=== PATIENT | female | born 1990 | race Hispanic/Latino ===

== ENCOUNTER 2016-06-01 23:31 | Emergency (ER) | payer OTHER ==
[~2016-06-01] VITALS: Ht 167.6 cm; Wt 82.1 kg
[~2016-06-01 23:31] MED LIST: ACYCLOVIR400 MG PO; AMOXICILLIN500 MG PO; ANAPROX DS550 M1 PO; BACTRIM,SEPT1 TABLET PO; CLONAZEPAM0.5 MG PO; ERYTHROMYCIN O3.5 GM BOTH EYES; EXCEDRIN MIGRA1 EAC1; KLONOPIN0.5 M1 PO; KLONOPIN1 MG PO; MOTRIN800 MG PO; Motrin PO; NOHOMEMEDS; NORCO 5/3251 TABLET PO; PAROXETINE HCL20 MG PO; PAXIL40 MG PO; REGLAN10 MG PO; Tylenol Extra Streng PO; Tylenol Regular Stre PO; ULTRAM50 MG PO; ZOFRAN ODT4 MG PO; ZOFRAN4 MG PO; ZOLPIDEM TARTRAT5 MG PO
[2016-06-02 00:22] LABS: ADD MIUA? NO; BILIRUBIN NEGATIVE; BLOOD NEGATIVE; COLOR STRAW ((YELLOW)); GLUCOSE (STRIP) NEGATIVE; KETONES NEGATIVE; LEUKOCYTES NEGATIVE; NITRITE NEGATIVE; PROTEIN (STRIP) NEGATIVE; SPECIFIC GRAVITY 1.004 (1.000-1.030); UCUL ADDED? NO; UROBILINOGEN 0.2 MG/DL (0.2-1.0)
[2016-06-02 00:23] LABS: HEMATOCRIT 40.1 % (36.0-46.0); MCH 31.4 PG (29.0-34.0); MCHC 34.2 G/DL (30.0-36.0); MCV 91.8 FL (83-99); PLATELET COUNT 285 K/uL (156-360); RBC DIS.WIDTH-CV 12.4 % (11.8-14.6); RBC DIS.WIDTH-SD 40.6 % (39-53); RED BLOOD COUNT 4.37 M/uL (3.80-5.20); WHITE BLOOD COUNT 7.8 K/uL (4.1-10.2)
[2016-06-02 00:29] LABS: AMPHETAMINE NEGATIVE (500 ng/mL); BARBITURATES NEGATIVE (200 ng/mL); BENZODIAZEPINES NEGATIVE (150 ng/mL); COCAINE NEGATIVE (150 ng/mL); INTERNAL CONTROLS VALID? YES; METHADONE NEGATIVE (200 ng/mL); METHAMPHETAMINE NEGATIVE (500 ng/mL); OPIATES (MORPHINE) NEGATIVE (100 ng/mL); OXYCODONE NEGATIVE (100 ng/mL); PHENCYCLIDINE NEGATIVE (25 ng/mL); PROPOXYPHENE NEGATIVE (300 ng/mL); THC CANNABINOIDS NEGATIVE (50 ng/mL); TRICYCLIC ANTIDEPRESSANTS NEGATIVE (300 ng/mL)
[2016-06-02 00:38] LABS: CHLORIDE 111 mEq/L (99-109); POTASSIUM 3.5 mEq/L (3.7-5.4); SODIUM 144 mEq/L (136-147)
[2016-06-02 00:40] LABS: GLUCOSE 98 mg/dL (70-99)
[2016-06-02 00:42] LABS: ANION GAP 11 MEQ/L (2-14)
[2016-06-02 00:43] LABS: SERUM ETHYL ALCOHOL 256 mg/dL
[2016-06-02 00:44] LABS: GFR ESTIMATE (CALCULATED) > 59 mL/min/
[2016-06-02 00:45] LABS: UREA NITROGEN (BUN) 10 mg/dL (9-23)
[2016-06-02 00:54] LABS: QUANTITATIVE HCG < 4.0 MIU/ML
[2016-06-02 08:37] VITALS: BP 111/56
== END 2016-06-02 09:20 | disposition home or self-care (01) ==
LOC: EME → EDBD 23:31 → EME 23:31
PROVIDERS: Emergency Medicine
DX: F32.9 Major depressive disorder, single episode, unspecified (principal); R45.850 Homicidal ideations; R45.851 Suicidal ideations; F10.129 Alcohol abuse with intoxication, unspecified
CPT/HCPCS: 80048; 81003; 84702; 85027; 90837; 99281; 99285; G0480; J1630; J2060

== ENCOUNTER 2016-11-01 08:02 | Emergency (ER) | payer OTHER ==
[~2016-11-01] VITALS: Ht 167.6 cm; Wt 80.2 kg
[2016-11-01 08:38] LABS: ADD MIUA? NO; BILIRUBIN NEGATIVE; BLOOD NEGATIVE; COLOR STRAW ((YELLOW)); GLUCOSE (STRIP) NEGATIVE; KETONES NEGATIVE; LEUKOCYTES NEGATIVE; NITRITE NEGATIVE; PROTEIN (STRIP) NEGATIVE; SPECIFIC GRAVITY 1.005 (1.000-1.030); UROBILINOGEN 0.2 MG/DL (0.2-1.0)
[2016-11-01 08:49] LABS: AMPHETAMINE NEGATIVE (500 ng/mL); BARBITURATES NEGATIVE (200 ng/mL); BENZODIAZEPINES NEGATIVE (150 ng/mL); COCAINE NEGATIVE (150 ng/mL); INTERNAL CONTROLS VALID? YES; METHADONE NEGATIVE (200 ng/mL); METHAMPHETAMINE NEGATIVE (500 ng/mL); OPIATES (MORPHINE) NEGATIVE (100 ng/mL); OXYCODONE NEGATIVE (100 ng/mL); PHENCYCLIDINE NEGATIVE (25 ng/mL); PROPOXYPHENE NEGATIVE (300 ng/mL); THC CANNABINOIDS NEGATIVE (50 ng/mL); TRICYCLIC ANTIDEPRESSANTS NEGATIVE (300 ng/mL)
[2016-11-01 08:55] LABS: HEMATOCRIT 40.3 % (36.0-46.0); MCH 31.1 PG (29.0-34.0); MCV 88.8 FL (83-99); RBC DIS.WIDTH-CV 13.1 % (11.8-14.6); RBC DIS.WIDTH-SD 42.5 % (39-53); RED BLOOD COUNT 4.54 M/uL (3.80-5.20); WHITE BLOOD COUNT 8.5 K/uL (4.1-10.2)
[2016-11-01 09:07] LABS: MEAN PLAT.VOLUME 10.5 uM^3 (9.5-12.4); PLATELET COUNT 271 K/uL (156-360)
[2016-11-01 09:17] LABS: CHLORIDE 108 mEq/L (99-109); POTASSIUM 3.7 mEq/L (3.7-5.4); SODIUM 144 mEq/L (136-147)
[2016-11-01 09:19] LABS: GLUCOSE 98 mg/dL (70-99)
[2016-11-01 09:20] LABS: ANION GAP 11 MEQ/L (2-14)
[2016-11-01 09:22] LABS: SERUM ETHYL ALCOHOL 267 mg/dL
[2016-11-01 09:23] LABS: GFR ESTIMATE (CALCULATED) > 59 mL/min/
[2016-11-01 09:24] LABS: UREA NITROGEN (BUN) 7 mg/dL (9-23)
[2016-11-01 09:31] LABS: QUANTITATIVE HCG < 4.0 MIU/ML
[2016-11-01 15:51] VITALS: BP 113/51
== END 2016-11-01 16:20 | disposition home or self-care (01) ==
LOC: EME 08:02
PROVIDERS: Nurse Practitioner Family
PROC: 3E0234Z Introduction of Serum, Toxoid and Vaccine into Muscle, Percutaneous Approach (ICD-10-PCS; principal; 2016-11-01)
DX: F32.9 Major depressive disorder, single episode, unspecified (principal); F31.9 Bipolar disorder, unspecified; S61.512A Laceration without foreign body of left wrist, initial encounter; X78.9XXA Intentional self-harm by unspecified sharp object, initial encounter; F10.129 Alcohol abuse with intoxication, unspecified; Y90.8 Blood alcohol level of 240 mg/100 ml or more; F90.9 Attention-deficit hyperactivity disorder, unspecified type; F41.9 Anxiety disorder, unspecified; F17.200 Nicotine dependence, unspecified, uncomplicated
CPT/HCPCS: 80048; 81003; 84702; 85027; 90837; 99281; 99285; G0480

== ENCOUNTER 2017-04-07 16:01 | Emergency (ER) | payer OTHER ==
[~2017-04-07] VITALS: Ht 170.2 cm; Wt 68.9 kg
[2017-04-07 17:53] LABS: HEMATOCRIT 39.5 % (36.0-46.0); HEMOGLOBIN 13.5 G/DL (11.9-15.5); MCHC 34.2 G/DL (30.0-36.0); MCV 90.6 FL (83-99); PLATELET COUNT 266 K/uL (156-360); RBC DIS.WIDTH-CV 13.2 % (11.8-14.6); RED BLOOD COUNT 4.36 M/uL (3.80-5.20)
[2017-04-07 18:04] LABS: CHLORIDE 109 mEq/L (99-109); SODIUM 141 mEq/L (136-147)
[2017-04-07 18:06] LABS: GLUCOSE 96 mg/dL (70-99)
[2017-04-07 18:09] LABS: SERUM ETHYL ALCOHOL 234 mg/dL
[2017-04-07 18:10] LABS: CREATININE 0.9 mg/dL (0.6-1.3); GFR ESTIMATE (CALCULATED) > 59 mL/min/
[2017-04-07 18:11] LABS: UREA NITROGEN (BUN) 8 mg/dL (9-23)
[2017-04-07 18:13] LABS: ACETAMINOPHEN (TYLENOL) < 10 mcg/mL (10-30); SALICYLATE < 5.0 MG/DL (15-30)
[2017-04-07 20:16] LABS: AMPHETAMINE NEGATIVE (500 ng/mL); BARBITURATES NEGATIVE (200 ng/mL); BENZODIAZEPINES NEGATIVE (150 ng/mL); BUPRENORPHINE NEGATIVE (10 ng/mL); COCAINE NEGATIVE (150 ng/mL); METHADONE NEGATIVE (200 ng/mL); METHAMPHETAMINE NEGATIVE (500 ng/mL); OPIATES (MORPHINE) NEGATIVE (100 ng/mL); OXYCODONE NEGATIVE (100 ng/mL); PHENCYCLIDINE NEGATIVE (25 ng/mL); PROPOXYPHENE NEGATIVE (300 ng/mL); THC CANNABINOIDS NEGATIVE (50 ng/mL); TRICYCLIC ANTIDEPRESSANTS NEGATIVE (300 ng/mL)
[2017-04-07 23:33] VITALS: BP 118/68
== END 2017-04-07 23:37 | disposition home or self-care (01) ==
LOC: EME 16:01
PROVIDERS: Emergency Medicine
DX: F32.9 Major depressive disorder, single episode, unspecified (principal); F10.129 Alcohol abuse with intoxication, unspecified; R45.851 Suicidal ideations; Y90.7 Blood alcohol level of 200-239 mg/100 ml; F17.200 Nicotine dependence, unspecified, uncomplicated
CPT/HCPCS: 80048; 85027; 90837; 99281; 99285; G0480

== ENCOUNTER 2017-04-17 14:56 | Emergency (ER) | payer OTHER ==
[~2017-04-17] VITALS: Ht 172.7 cm; Wt 76.9 kg
[2017-04-17 15:44] LABS: BASOPHIL (%) 0.6 % (0-1); BASOPHIL COUNT 0.1 K/uL (0-0.1); EOSINOPHIL (%) 1.7 % (0-5); EOSINOPHIL COUNT 0.1 K/uL (0-0.3); HEMATOCRIT 41.1 % (36.0-46.0); HEMOGLOBIN 14.1 G/DL (11.9-15.5); IMMATURE GRANULOCYTE (%) 0.2 % (0.0-0.7); LYMPHOCYTE (%) 39.9 % (15-42); LYMPHOCYTE COUNT 3.3 K/uL (1.0-2.8); MCH 30.7 PG (29.0-34.0); MCHC 34.3 G/DL (30.0-36.0); MCV 89.3 FL (83-99); MONOCYTE (%) 5.2 % (3-12); MONOCYTE COUNT 0.4 K/uL (0-0.8); NEUTROPHIL (%) 52.4 % (45-76); NEUTROPHIL COUNT 4.3 K/uL (1.8-6.4); PLATELET COUNT 260 K/uL (156-360); RBC DIS.WIDTH-CV 13.3 % (11.8-14.6); RBC DIS.WIDTH-SD 43.4 % (39-53); WHITE BLOOD COUNT 8.2 K/uL (4.1-10.2)
[2017-04-17 15:53] LABS: COCAINE NEGATIVE (150 ng/mL); PHENCYCLIDINE NEGATIVE (25 ng/mL); THC CANNABINOIDS NEGATIVE (50 ng/mL)
[2017-04-17 15:54] LABS: AMPHETAMINE NEGATIVE (500 ng/mL); BARBITURATES NEGATIVE (200 ng/mL); BENZODIAZEPINES NEGATIVE (150 ng/mL); BUPRENORPHINE NEGATIVE (10 ng/mL); METHADONE NEGATIVE (200 ng/mL); METHAMPHETAMINE NEGATIVE (500 ng/mL); OPIATES (MORPHINE) NEGATIVE (100 ng/mL); OXYCODONE NEGATIVE (100 ng/mL); PROPOXYPHENE NEGATIVE (300 ng/mL); TRICYCLIC ANTIDEPRESSANTS NEGATIVE (300 ng/mL)
[2017-04-17 15:56] LABS: ALBUMIN 4.2 g/dL (3.2-4.8); CHLORIDE 111 mEq/L (99-109); POTASSIUM 3.6 mEq/L (3.7-5.4); SODIUM 145 mEq/L (136-147)
[2017-04-17 15:58] LABS: GLUCOSE 86 mg/dL (70-99)
[2017-04-17 15:59] LABS: TOTAL PROTEIN 6.9 g/dL (6.4-8.3)
[2017-04-17 16:00] LABS: TOTAL BILIRUBIN 0.4 mg/dL (0.0-1.0)
[2017-04-17 16:01] LABS: SERUM ETHYL ALCOHOL 285 mg/dL
[2017-04-17 16:02] LABS: CREATININE 0.8 mg/dL (0.6-1.3); GFR ESTIMATE (CALCULATED) > 59 mL/min/
[2017-04-17 16:03] LABS: ALKALINE PHOSPHATASE 105 IU/L (3-129)
[2017-04-17 16:04] LABS: AST (GOT) 46 IU/L (2-34); UREA NITROGEN (BUN) 5 mg/dL (9-23)
[2017-04-17 16:06] LABS: ACETAMINOPHEN (TYLENOL) < 10 mcg/mL (10-30); ALT (GPT) 51 IU/L (3-49); SALICYLATE < 5.0 MG/DL (15-30)
[2017-04-17 16:13] LABS: QUANTITATIVE HCG 9.6 MIU/ML
[2017-04-18 00:07] VITALS: BP 109/77
== END 2017-04-18 00:08 | disposition home or self-care (01) ==
LOC: EME 14:56
PROVIDERS: Emergency Medicine
DX: S50.812A Abrasion of left forearm, initial encounter (principal); X78.9XXA Intentional self-harm by unspecified sharp object, initial encounter; F10.129 Alcohol abuse with intoxication, unspecified; F31.9 Bipolar disorder, unspecified; F41.9 Anxiety disorder, unspecified; F90.9 Attention-deficit hyperactivity disorder, unspecified type; F17.200 Nicotine dependence, unspecified, uncomplicated
CPT/HCPCS: 80053; 84702; 85025; 90837; 99281; 99285; G0480

== ENCOUNTER 2017-09-27 16:53 | Emergency (ER) | payer OTHER ==
[~2017-09-27] VITALS: Ht 170.2 cm; Wt 93.4 kg
[2017-09-27] MEDS ORDERED: NORCO 5/3251 TABLET PO (19:13)
[2017-09-27 19:20] VITALS: BP 108/68
== END 2017-09-27 19:54 | disposition home or self-care (01) ==
LOC: EME 16:53
DX: S00.83XA Contusion of other part of head, initial encounter (principal); S30.0XXA Contusion of lower back and pelvis, initial encounter; Y04.2XXA Assault by strike against or bumped into by another person, initial encounter; F17.200 Nicotine dependence, unspecified, uncomplicated
CPT/HCPCS: 70486; 72220; 99281; 99284